=== PATIENT | male | born 2000 | race American Indian/Alaskan Native ===

== ENCOUNTER 2020-10-06 18:03 | Emergency (ER) | payer SELFPAY ==
[2020-10-06] MEDS ORDERED: dexAMETHasone 20 MG/5 ML VIAL IV ONE (18:29)
[2020-10-06] MEDS ORDERED: diphenhydrAMINE 50 MG/ML VIAL IV ONE (18:29)
[2020-10-06] MEDS ORDERED: diphenhydrAMINE 50 MG/ML VIAL IM ONE (18:30)
[2020-10-06] MEDS ORDERED: dexAMETHasone 20 MG/5 ML VIAL IM ONE (18:30)
--- NOTE | 2020-10-06 18:33 | Event Note ---
ED Screening Note Date of service: 10/06/20 Time: 18:32 ED Screening Note: States allergic reaction to nuts today States facial swelling, rash, and diffuse itching Denies dysphagia or shortness of breath This initial assessment/diagnostic orders/clinical plan/treatment(s) is/are subject to change based on patients health status, clinical progression and re- assessment by fellow clinical providers in the ED. Further treatment and workup at subsequent clinical providers discretion. Patient/guardian urged not to elope from the ED as their condition may be serious if not clinically assessed and managed. Initial orders include: Decadron and Benadryl IM
--- NOTE | 2020-10-06 19:31 | Emergency Department Report ---
ED Rash HPI - HPI Chief Complaint: Allergic Reaction Stated Complaint: ALLERGIC REACTION Time Seen by Provider: 10/06/20 19:24 Duration: Today Location: Upper Extremities Rash Symptoms: Yes Itching, Yes Facial Swelling, No Tongue/Oral Swelling, No Breathing Difficulties, No Choking Sensation, No Wheezing/Dyspnea, No Peeling, No Blistering, No Fever Severity: moderate Other History: The patient was evaluated in the emergency department for symptoms described in the history of present illness. He/she was evaluated in the context of the global COVID-19 pandemic, which necessitated consideration that the patient might be at risk for infection with the virus that causes COVID-19. Institutional protocols and algorithms that pertain to the evaluation of patients at risk for COVID-19 are in a state of rapid change based on information released by regulatory bodies including the CDC and federal and state organizations. These policies and algorithms were followed during the patient's care in the emergency department. Please note that these policies, procedures and recommendations changed on a rapid basis. 20-year-old -[place] male presents to the emergency room for allergic reaction to cashews. Patient states that he had eaten a dish that had cashews that he was unaware of. Patient states he started to have tingling to his mouth and tongue and then hives started to present. Patient states he took a Benadryl which he states did not help in came to the emergency room to be evaluated. Patient denies any shortness of breath chest pain. He says since he has had the medication here he feels much better. ED Review of Systems ROS: Stated complaint: ALLERGIC REACTION Other details as noted in HPI Comment: All other systems reviewed and negative ED Past Medical Hx - Past Medical History Previous Medical History?: No - Surgical History Past Surgical History?: No - Social History Smoking Status: Never Smoker - Medications Home Medications: Home Medications Medication Instructions Recorded Confirmed Last Taken Type Cetirizine HCl 10 mg PO QDAY 7 Days #7 tablet 10/06/20 Unknown Rx EPINEPHrine [Epipen 2-Ralph] 0.3 mg IJ ONCE PRN #1 auto.injct 10/06/20 Unknown Rx predniSONE [Deltasone] 40 mg PO QDAY 5 Days #10 tab 10/06/20 Unknown Rx Rash Exam - Exam General: Vital signs noted. No distress. Alert and acting appropriately. HEENT: No Periorbital Edema, No Conjuctival Injection, No Chemosis, No Perioral Edema, No Tongue Edema, No Uvular Edema, No Compromised Airway, No Drooling Lungs: Yes Good Air Exchange (Normal Breath Sounds), No Wheezes, No Ronchi, No Stridor, No Cough, No Labored Respirations, No Retractions, No Use of Accessory Muscles, No Other Abnormal Lung Sounds Heart: Yes Regular, No Murmur Skin: No Urticarial Rash, No Maculopapular Rash, No Morbilliform rash, No Bulla(e), No Excoriations, No Weeping, No Tenderness, No Erythema, No Edema, No Encrustations, No Other Other: Positive: Abdomen Normal, Neurologic Normal, Musculoskeletal Normal ED Course Vital Signs 10/06/20 18:19 Temperature 97.9 F Pulse Rate 127 H Respiratory 17 Rate Blood Pressure 141/79 O2 Sat by Pulse 96 Oximetry ED Medical Decision Making - Medical Decision Making 20-year-old -[place] male presents to the emergency room for allergic reaction to cashews. Patient states that he had eaten a dish that had cashews that he was unaware of. Patient states he started to have tingling to his mouth and tongue and then hives started to present. Patient states he took a Benadryl which he states did not help in came to the emergency room to be evaluated. Patient denies any shortness of breath chest pain. He says since he has had the medication here he feels much better. Patient was started on Decadron and Benadryl from triage. This provider is not able to appreciate any hives as he reports has improved since having medication. I did discuss with patient we will send him home on prednisone for 5 days he can take [id number] Zyrtec's or Claritin daily for the next 7 days and Benadryl at night if he feels is getting worse. Patient is to be discharged on a prescription for EpiPen and to follow-up with his primary care provider return to the emergency room with any worsening symptoms. Critical care attestation.: If time is entered above; I have spent that time in minutes in the direct care of this critically ill patient, excluding procedure time. 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 Take your prednisone and your cetirizine as prescribed. Intermittent Benadryl as needed. Use your EpiPen if you have an anaphylactic reaction. Turn to the emergency room with any worsening symptoms. Prescriptions: Cetirizine HCl 10 mg PO QDAY 7 Days #7 tablet predniSONE [Deltasone] 40 mg PO QDAY 5 Days #10 tab EPINEPHrine [Epipen 2-Ralph] 0.3 mg IJ ONCE PRN #1 auto.injct PRN Reason: Anaphylaxis Referrals: PRIMARY CARE, [Primary Care Provider] - 3-5 Days Forms: Work/School Release Form(ED)
[2020-10-06 20:07] VITALS: BP 127/71
== END 2020-10-06 20:07 | disposition home or self-care (01) ==
LOC: ED 18:03
DX: J30.1 Allergic rhinitis due to pollen (principal); Z79.899 Other long term (current) drug therapy; Z91.010 Allergy to peanuts
CPT/HCPCS: 96372; 99282; J1100; J1200